=== PATIENT | male | born 1965 | race Caucasian/White ===

== ENCOUNTER 2019-06-12 17:05 | Emergency (ER) | payer BC, SELFPAY ==
--- NOTE | ~2019-06-12 | XR_ITS ---
EXAMINATION: XR chest 2V DATE: 06/12/2019 17:29 INDICATION: Left-sided chest pain TECHNIQUE: PA and lateral views of the chest are obtained. COMPARISON: None available FINDINGS: The lungs are hyperinflated but free of acute opacities. There is no pleural effusion or pn eumothorax. The cardiomediastinal silhouette is normal. There is mild thoracic spondylosis. IMPRESSION: 1. Hyperinflation without acute cardiopulmonary abnormality. Reviewed, dictated and finalized at location A. COATING MACHINE OPERATOR
--- NOTE | 2019-06-12 17:06 | ECG_ITS ---
Measurements Intervals [place] Rate: 85 P: 81 RI: 142 QRS: 83 QRSD: 89 T: 48 QT: 327 QTc: 389 Interpretive Statements SINUS RHYTHM POSSIBLE LEFT ATRIAL ENLARGEMENT POSSIBLE LEFT VENTRICULAR HYPERTROPHY BASELINE ARTIFACT- V3 BORDERLINE ECG Electronically Signed On 06-12-2019 19:48:42 AUTOMATION CONSULTANT by Eleazar Small D.O.
[2019-06-12 17:13] VITALS: BP 127/90; PULSE 90; RESP 17; TEMP 37.5; O2SAT 98
[2019-06-12 17:23] LABS: Basophils Percent Auto 0.9 % (0.2-1.2); Eosinophils Absolute Auto 0.1 K/mm3 (0-0.3); Eosinophils Percent Auto 2.8 % (0-4.4); Hematocrit 43.8 % (42.0-52.0); Hemoglobin 14.4 g/dL (14.0-18.0); Immature Granulocyte Absolute 0.02 K/mm3 (0.00-0.031); Immature Granulocyte Percent A 0.4 % (0-0.5); Lymphocytes Absolute Auto 0.86 K/mm3 (0.9-3.2); Lymphocytes Percent Auto 18.8 % (18.3-44.2); Mean Corpuscular HGB Conc 32.9 g/dl (32-36); Mean Corpuscular Hemoglobin 31.1 pg (26-34); Mean Corpuscular Volume 94.6 fl (80-100); Mean Platelet Volume 10.5 fl (7.4-10.4); Monocytes Absolute Auto 0.6 K/mm3 (0.1-0.6); Monocytes Percent Auto 12.2 % (2.6-8.5); Neutrophils Percent Auto 64.9 % (45.5-73.1); Platelet Count Result 220 k/mm3 (150-375); Red Blood Count 4.63 M/mm3 (4.6-6.20); Red Cell Distribution Width 12.4 % (11.5-14.5); White Blood Count 4.6 K/mm3 (4.5-10.0)
[2019-06-12 17:33] LABS: Prothrombin Time 13.3 Seconds (11.1-14.7)
[2019-06-12 17:34] LABS: Partial Thromboplastin Time 29.6 SECONDS (22.3-36.8)
[2019-06-12 17:35] LABS: Blood Urea Nitrogen 16 mg/dL (9-20); Calcium 9.5 mg/dL (8.4-10.2); Carbon Dioxide 29 mmol/L (22-30); Chloride 100 mmol/L (98-107); Estimated Glomerular Filt Rate > 60; Glucose 104 mg/dL (75-110); Potassium 4.1 mmol/L (3.4-5.0); Sodium 142 mmol/L (137-145)
[2019-06-12 17:46] LABS: Troponin I < 0.012 ng/mL (0.000-0.034)
[2019-06-12 20:38] VITALS: BP 136/96; PULSE 71; PULSE 76; RESP 10; TEMP 36.7; O2SAT 100
--- NOTE | 2019-06-12 20:43 | ED.CHESTPAIN ---
HPI - Chest Pain General Chief Complaint: Chest Pain Stated Complaint: I think I had a heart attck yesterday Time Seen by Provider: 06/12/19 20:32 Source: patient and RN notes reviewed Mode of arrival: ambulatory Limitations: no limitations History of Present Illness HPI narrative: Pt is a 54 y/o male who presents to the ED with c/o lt sided chest pain starting yesterday. He notes that he has been more anxious recently, stating that he was quite nervous to ride a horse yesterday. Pt notes that he developed tightness in the lt side of his chest while he was riding the horse yesterday. He states that he hasn't felt right ever since, and notes that he experienced another episode of tightness in the lt side of his chest while exercising earlier today. Pt also reports feeling lightheaded shortly after working out. He denies any back pain, lt arm pain, jaw pain, nausea, or diaphoresis accompanying his chest tightness. Pt states that he hasn't taken any pain medications for his symptoms. MD complaint: chest pain Onset (ago): day(s) (1) Timing of current episode: episodic Onset: during exertion (while riding a horse) Pain location: left chest Pain radiation: none Quality: tightness Exacerbating factors: exertion Associated symptoms: other (lightheadedness; anxiety) Treatment prior to arrival: none Related Data Home Medications Medication Instructions Recorded Confirmed No Home Medications 06/12/19 06/12/19 Allergies Allergy/AdvReac Type Severity Reaction Status Date / Time No Known Allergies Allergy Verified 06/12/19 20:39 Review of Systems Review of Systems: Narrative: CONSTITUTIONAL: Denies fever, chills, or sweats. CARDIOVASCULAR: Reports lt sided chest pain. Denies palpitations or edema. RESPIRATORY: Denies cough or dyspnea. GASTROINTESTINAL: Denies abdominal pain, nausea, vomiting, or diarrhea. MUSCULOSKELETAL: Denies back pain, jaw pain, lt arm pain, joint pain, or myalgia. NEUROLOGIC: Denies headache, numbness, or weakness. Reports lightheadedness. PSYCH: Reports anxiety. All systems reviewed & are unremarkable except as noted in HPI and below PMFSH Past Medical History Medical History Arm fracture, left Inguinal hernia Surgical History Surgical History Hx of inguinal hernia repair Hx of tonsillectomy Family History Family History (Updated 01/09/17 @ 14:03 by DOCTOR UNKNOWN) Mother Hypertension Father Family history of diabetes mellitus in first degree relative Other Diabetes mellitus Family history of allergic disorder Social History Social History Smoking status: Never smoker Alcohol intake: current Gender identity (if verbalized by the patient): Male Comments PCP is Dr. Pleitez. Exam Narrative: Exam Narrative: GENERAL: Anxious appearing, well-nourished, and in no acute distress. HEAD: Normocephalic, atraumatic. EYES: PERRLA and EOMI. ENT: Nares clear, no rhinorrhea or epistaxis. Mucous membranes moist. NECK: Supple. CHEST: Clear to auscultation. No respiratory distress. No chest wall tenderness. HEART: Regular rate and rhythm. No murmur heard. Normal peripheral pulses. ABDOMEN: Soft, nontender, nondistended, normal active bowel sounds. EXTREMITIES: Normal range of motion. No edema. SKIN: Warm, dry, no rash. NEURO: No focal deficits. Alert and oriented. Course Vital Signs Vital signs: Vital Signs Temperature 37.5 C 06/12/19 17:13 Pulse Rate 90 06/12/19 17:13 Respiratory Rate 17 06/12/19 17:13 Blood Pressure 127/90 06/12/19 17:13 Pulse Oximetry 98 06/12/19 17:13 Temperature 36.7 C 06/12/19 20:38 Pulse Rate 71 06/12/19 20:38 Respiratory Rate 10 L 06/12/19 20:38 Blood Pressure 136/96 H 06/12/19 20:38 Pulse Oximetry 100 06/12/19 20:38 MDM - Chest Pain MDM Narrative Medical decision making narr
[2019-06-12 20:52] LABS: Troponin I < 0.012 ng/mL (0.000-0.034)
[2019-06-12 21:07] VITALS: BP 137/102; PULSE 83; RESP 14; O2SAT 99
== END 2019-06-12 21:12 | disposition home or self-care (01) ==
LOC: ANHED 21:00
PROVIDERS: Emergency Provider Emergency Medicine; PCP Family Medicine
DX: R07.89 Other chest pain (principal); R94.31 Abnormal electrocardiogram [ECG] [EKG]
CPT/HCPCS: 36415; 71046; 80048; 84484; 85025; 85610; 85730; 93005; 99284

== ENCOUNTER → 2020-03-29 11:44 | Outpatient (CLI) | payer BC, SELFPAY ==
--- NOTE | ~2020-03-29 | XR_ITS ---
EXAMINATION: XR tibia fibula LT 2V EXAM DATE: 03/29/2020 12:40 INDICATION: No known recent injury provided at this time. Pain of the left leg. Painful quarter size d lump of lower medial LT tibfib. Painful dime sized lump of lower medial RT tibfib x 2 weeks. TECHNIQUE: Left tibia/fibula frontal and lateral projections obtained and reviewed. There is no prio r study for comparison. FINDINGS: Left tibial and fibular shafts unremarkable. There are no acute fractures or dislocations identified. There is no subcutaneous gas. The soft tissue is unremarkable. There are no radiopaqu e foreign bodies. No periosteal reaction or band of sclerosis to suggest subacute stress fracture. IMPRESSION: 1. Unremarkable XR tibia fibula LT 2V exam. Reviewed, dictated and finalized at location A. [employer] REGULATORY AGENCY
--- NOTE | ~2020-03-29 | XR_ITS ---
EXAMINATION: XR tibia fibula RT 2V EXAM DATE: 03/29/2020 12:39 INDICATION: No known recent injury provided at this time. Pain of the right leg. TECHNIQUE: Right tibia/fibula frontal and lateral projections obtained and reviewed. Comparison is ma dominique to prior examination from 02/23/2017. FINDINGS: Right tibial and fibular shafts unremarkable. No periosteal reaction or band of sclerosis to suggest subacute stress fracture. There are no acute fractures or dislocations identified. There is no subcutaneous gas. The soft tissue is unremarkable. There are no radiopaque foreign bodies. IMPRESSION: 1. Unremarkable XR tibia fibula RT 2V exam. Reviewed, dictated and finalized at location A. RAMMING DEVELOPMENT PROJECT MANAGER
== END ==
PROVIDERS: PCP Family Medicine; Visit Provider Nurse Practitioner
DX: M79.606 Pain in leg, unspecified (principal)
CPT/HCPCS: 73590

== ENCOUNTER 2020-08-09 11:10 | Emergency (ER) | payer BC, SELFPAY ==
[2020-08-09] VITALS (10 sets, daily range): BP systolic 123–143; BP diastolic 78–92; PULSE 68–108; RESP 10–21; TEMP 36.3; O2SAT 100
--- NOTE | ~2020-08-09 | XR_ITS ---
EXAMINATION: XR wrist LT 2V DATE: 08/09/2020 13:43 INDICATION: Distal left radius fracture status post reduction. TECHNIQUE: 2 views of left wrist were obtained. COMPARISON: Left wrist radiographs at 11:46 AM FINDINGS: There is a comminuted fracture of distal radius with involvement of the distal articular alex rface and distal radioulnar joint. The main distal fracture fragment demonstrates impaction and dorsa l angulation. There is 14 degrees dorsal tilt of the distal articular surface. There is an avulsion f racture of the ulnar styloid. There is mild osteoarthritis of first carpometacarpal joint. IMPRESSION: 1. Comminuted fracture of distal radius with improvement in alignment. 2. Avulsion fracture of the ulnar styloid. Reviewed, dictated and finalized at location A.
--- NOTE | ~2020-08-09 | XR_ITS ---
EXAMINATION: XR wrist LT min 3V DATE: 08/09/2020 11:48 INDICATION: Left wrist pain, initial encounter TECHNIQUE: Three views of the left wrist are obtained. COMPARISON: None available FINDINGS: There is an acute, traumatic, closed, comminuted intra-articular fracture of the distal rad ius. There are 30 degrees of dorsal angulation at the fracture site. The carpal bones are dorsally di splaced with the distal fracture fragment. There is an ulnar styloid avulsion fracture. Soft tissue s welling surrounds the fractures. No additional acute osseous abnormality is identified. IMPRESSION: 1. Comminuted intra-articular fracture of the distal radius with dorsal angulation. 2. Ulnar styloid fracture. Reviewed, dictated and finalized at location B. IMPRESSION: 1. Comminuted intra-articular fracture of the distal radius with dorsal angulat ion. 2. Ulnar styloid fracture.
--- NOTE | 2020-08-09 11:41 | ED.UPPEXIN ---
HPI - Extremity Injury (Upper) General Chief Complaint: Extremity Injury, Upper Stated Complaint: Broken Wrist Time Seen by Provider: 08/09/20 11:22 Source: patient Mode of arrival: ambulatory Limitations: no limitations History of Present Illness HPI narrative: This is a 55 year male that presents to the ER for left wrist injury sustained just prior to arrival. Reports he was getting in the shower and slipped and fell. Reports catching himself with his left wrist. Reports pain, swelling and obvious deformity to the area. Reports decreased range of motion in the wrist. Denies hitting his head, loss of consciousness, prodromal symptoms, other injuries, or numbness. Related Data Allergies Allergy/AdvReac Type Severity Reaction Status Date / Time No Known Allergies Allergy Verified 08/09/20 11:21 Review of Systems Review of Systems: Narrative: CONSTITUTIONAL: Denies fever MUSCULOSKELETAL: Reports joint pain, and myalgia. NEUROLOGIC: Denies numbness All systems reviewed & are unremarkable except as noted in HPI and below PMFSH Past Medical History Medical History (Updated 08/09/20 @ 15:39 by Linnette Heath PA-C) Arm fracture, left Inguinal hernia Onychomycosis 1999 Radial fracture right - 1970 Rupture of extensor tendon of finger right - 1995 Surgical History Surgical History Hx of inguinal hernia repair left and right - 08/2014 left 09/2014 left 07/02/2018 Hx of tonsillectomy Family History Family History Mother Hypertension Father Family history of diabetes mellitus in first degree relative Other Diabetes mellitus Family history of allergic disorder Social History Social History Smoking status: Never smoker Second hand tobacco smoke exposure: No Alcohol intake: current Substance use: never Substance use type: does not use Gender identity (if verbalized by the patient): Male Exam Narrative: Exam Narrative: GENERAL: Well-appearing, well-nourished, and in no acute distress. HEAD: Normocephalic, atraumatic. EYES: EOMI. EXTREMITIES: Normal range of motion, except decreased range of motion in the left wrist. Obvious deformity to the left wrist. Normal radial pulses. Normal sensation SKIN: Warm, dry, no rash. NEURO: No focal deficits. Alert and oriented x3. PSYCH: Normal mood and affect Course Consultations Consultation #1: Spoke with Dr. Hearn about patient and work-up will follow-up in clinic. Date: 08/09/20 Time: 15:38 Vital Signs Vital signs: Vital Signs Temperature 97.4 F L 08/09/20 11:14 Pulse Rate 68 08/09/20 11:14 Respiratory Rate 18 08/09/20 11:14 Blood Pressure 123/80 08/09/20 11:14 Pulse Oximetry 100 08/09/20 11:14 Temperature 97.4 F L 08/09/20 11:14 Pulse Rate 108 H 08/09/20 14:59 Respiratory Rate 17 08/09/20 14:59 Blood Pressure 135/89 08/09/20 14:59 Pulse Oximetry 100 08/09/20 14:59 MDM - Extremity Injury (Upper) MDM Narrative Medical decision making narrative: Patient presents to the emergency department for left wrist pain after a fall today. No other injuries. He is neurovascularly intact. Left wrist x-ray shows a comminuted intra-articular fracture of the distal radius with dorsal angulation. Postreduction x-ray still shows comminuted fracture of the distal radius with improvement in alignment. Also shows avulsion fracture of the ulnar styloid. Patient placed in splint. Spoke with Dr. Hearn about patient and work-up will follow-up in clinic. Patient is stable and felt appropriate for further outpatient evaluation. He was given warnings to return to the ER Imaging Data Radiologist's impression: ITS Impressions Wrist X-Ray 08/09/20 11:49 IMPRESSION: 1. Comminuted intra-articular fracture of the distal radius with dorsal angulation. 2. Ul
[2020-08-09] MEDS: ONDANSETRON INJ 4 MG/2 ML VIAL IV PUSH (12:08)
[2020-08-09] MEDS: MORPHINE SULFATE (*CRX) 4 MG/ML INJ IV PUSH (12:08)
[2020-08-09] MEDS: PROPOFOL IV EMULSION 200 MG/20 ML VIAL 60 MG IV PUSH (13:35)
[2020-08-09] MEDS: SODIUM CHLORIDE 0.9% IV 1,000 ML 999 ML (13:36)
[2020-08-09] MEDS: HYDROcodone/acetaminophen (*CRX) 5-325 MG TABLET 1 TAB PO (14:59)
--- NOTE | 2020-08-09 15:00 | PC.NURSE ---
o2 d/c,medicated for pain
== END 2020-08-09 16:16 | disposition home or self-care (01) ==
PROVIDERS: Emergency Provider Emergency Medicine; PCP Family Medicine
DX: S52.572A Other intraarticular fracture of lower end of left radius, initial encounter for closed fracture (principal); S52.612A Displaced fracture of left ulna styloid process, initial encounter for closed fracture; W18.2XXA Fall in (into) shower or empty bathtub, initial encounter
CPT/HCPCS: 25605; 73100; 73110; 96374; 96375; 99285; A4565; A9270; J2270; J2405; J2704; J7030

== ENCOUNTER 2020-08-11 02:26 | Day surgery (SDC) | payer BC, SELFPAY ==
[2020-08-11] VITALS (8 sets, daily range): BP systolic 103–171; BP diastolic 66–98; PULSE 84–111; RESP 10–20; TEMP 36.4–37.4; O2SAT 97–100; BMI 19.6
--- NOTE | ~2020-08-11 | XR_ITS ---
XR surgery orthopedic DATE: 08/11/2020 18:06 INDICATION: ORIF comminuted fracture distal radius TECHNIQUE: 2 spot C-arm views of the wrist 255.4 seconds 15.66 mGy COMPARISON: 08/10/2020 left wrist FINDINGS: A volar plate secured by anteroposteriorly directed screws providing near-anatomic position and alignment at the comminuted fracture of the distal radius. Fracture of the ulnar process. IMPRESSION: ORIF distal radial fracture Reviewed, dictated and finalized at Location A. Reviewed, dictated and finalized at location A. IMPRESSION: ORIF distal radial fracture
--- NOTE | 2020-08-11 07:33 | WPDHPUPDATE1 ---
History and Physical Update Update Date/Time: 08/11/20 07:33 History and Physical has been reviewed, including an updated exam of the patient. There are NO changes in the patient's condition. Risks, benefits, and alternatives have been discussed and questions answered. Patient agrees to proceed with procedure.
--- NOTE | 2020-08-11 13:30 | SUR.PREOP ---
Patient updated that there is probably a 30 minute delay in surgery start time
[2020-08-11] MEDS: ACETAMINOPHEN 500 MG TABLET 1000 MG PO (13:45)
[2020-08-11] MEDS: LACTATED RINGERS 1,000 ML 30 ML IV CONT ×2 (13:45→18:35)
[2020-08-11] MEDS: CELECOXIB 200 MG CAPSULE PO (13:45)
--- NOTE | 2020-08-11 14:00 | SUR.PREOP ---
Per Dr. Hearn cast is to remain in place, no shave and scrub in pre-op area.
--- NOTE | 2020-08-11 14:15 | WPDANESEPPF ---
Anes - Initial Pre Proc Eval Procedure: Operation Date: 08/11/20 15:00 Proposed Procedures p Open Reduction Internal Fixation Left Wrist Fracture - Rogelio Hearn MD Date/Time: 08/11/20 14:15 Surgeon: Rogelio Hearn MD Pre Op Diagnosis: left wrist fx Patient Data Age: 55 Gender: M Height: 5 ft 9 in Weight: 58.35 kg Last Vital Signs Temp 37.4 C 08/11/20 14:00 Pulse 84 08/11/20 14:00 Resp 16 08/11/20 14:00 BP 137/92 H 08/11/20 14:00 Pulse Ox 100 08/11/20 14:00 Allergies Allergy/AdvReac Type Severity Reaction Status Date / Time No Known Allergies Allergy Verified 08/11/20 13:53 Home Medications Medication Instructions Recorded Confirmed Type hydrocodone-acetaminophen 1 tablet PO Q6H PRN #14 tablet 08/09/20 08/11/20 Rx Patient hx anesthesia problems: none Family hx anesthesia problems: none PMFSH Past Medical History Medical History Anxiety Arm fracture, left Inguinal hernia Onychomycosis 1999 Radial fracture right - 1970 Rupture of extensor tendon of finger right - 1995 Wears glasses Surgical History Surgical History Hx of inguinal hernia repair left and right - 08/2014 left 09/2014 left 07/02/2018 Hx of tonsillectomy Family History Family History Mother Hypertension Father Family history of diabetes mellitus in first degree relative Diabetes mellitus Other Family history of allergic disorder Social History Social History Smoking status: Never smoker Second hand tobacco smoke exposure: No Alcohol intake: current Alcohol use details: 1/MONTH Substance use: never Substance use type: does not use Living arrangements: alone Gender identity (if verbalized by the patient): Male Spiritual care concerns: No Anes - Eval Final PreProcedure Day of Procedure 08/11/20 14:15 Patient weight: normal Heart: regular rate and rhythm Lungs: clear to auscultation Airway: Mallampati scale class II Neurological: alert and oriented Last oral intake: >/= 8 hours ASA classification: I Emergent: no Anesthetic plan: proceed Anesthesia type and monitoring: general LMA and standard monitoring Informed Consent: The patient's anesthetic plan and its attendant risks and benefits were discussed with the patient/family/POA. Questions were solicited and answers provided to the satisfaction of the patient/family/POA.
[2020-08-11] MEDS: ceFAZolin 2 GM/D5W 50 ML 2 GM/50 ML BAG IVPB (16:30)
[2020-08-11] MEDS: BUPIVACAINE HCL 0.5% PF 30 ML VIAL INFILTRATE (17:03)
[2020-08-11] MEDS: KETOROLAC 30 MG/ML VIAL (*BKC) IV PUSH (18:17)
--- NOTE | 2020-08-11 18:36 | P.OP_ITS ---
Procedure Note - Detailed Date of procedure: 08/11/20 Pre-op diagnosis: left wrist fx Post-op diagnosis: same Procedure performed: ORIF LEFT DISTAL RADIUS FRACTURE Description of procedure: THE PATIENT WAS TAKEN TO THE OR AND PLACED UNDER GENE RAL ANESTHESIA. THE LEFT UPPER EXTREMITY WAS PREPPED AND DRAPED FROM THE FINGERS TO THE ELBOW. AN INCISION WAS MADE OVER THE VOLAR WRIST IN A STANDARD HENRYS APPROACH OVER THE SKIN. DISSECTION CONTINUED UNTIL THE RADIAL ARTERY AND VEIN WERE IDENTIFIED AND RETRACTED. THE FCR TENDON WAS EXPOSED AND RETRACTED. THE FLEXOR POLLICIS TENDON WAS IDENTIFIED AND RETRACTED. THE PRONATOR QUADRATUS MUSCLE WAS IDENTIFIED AND WAS INCISED AT THE INSERTION SITE. THE FRACTURE WAS EXPOSED. A BIOMET DISTAL RADIUS PLATE WAS POSITIONED BRIDGING THE FRACTURE SITE. THE POSITION WAS CHECKED ON XRAY. DISTAL AND PROXIMAL SCREWS WERE PLACED WITH EXCELLENT FIXATION TO THE BONE. XRAYS WERE CHECKED AGAIN ASSURING EXCELLENT POSITION OF THE PLATE AND SCREWS AND A WELL REDUCED FRACTURE. THE TOURNEQUET WAS DEFLATED AND THE BLEEDERS WERE CAUTERIZED. THE RADIAL ARTERY WAS PULSATING WELL. THE WOUND WAS WASHED. THE DEEP LAYERS WERE REPAIRED WITH 3-0 VICRYL. THE SUBCUTANEOUS LAYER WAS APPROXIMATED WELL WITH 3-0 VICRYL AND THE SKIN WAS APPROXIMATED WITH 4-0 MONOCRYL AND DERMABOND. STERILE DRESSING WAS APPLIED AND A SUGAR TONG FOREARM SPLINT WAS APPLIED. THE PATIENT WAS EXTUBATED AND TRANSFERRED TO THE RECOVERY ROOM [facility] Surgeon: Rogelio Hearn MD Estimated blood loss (mL): 20 Complications: No immediate complications Condition: stable Disposition: PACU
== END 2020-08-11 20:33 | disposition home or self-care (01) ==
PROVIDERS: PCP Family Medicine; Visit Provider Orthopaedic Surgery
PROC: (CPT 25575; principal; 2020-08-11 15:00)
DX: S52.572A Other intraarticular fracture of lower end of left radius, initial encounter for closed fracture (principal); W18.2XXA Fall in (into) shower or empty bathtub, initial encounter
CPT/HCPCS: 25608; A9270; C1713; J0690; J1885; J2250; J2405; J2704; J3010; J7120

== ENCOUNTER 2022-03-15 11:21 | Outpatient (CLI) | payer BC, SELFPAY ==
[2022-03-15 19:46] LABS: Basophils Absolute Auto 0.1 K/mm3 (0.0-0.1); Basophils Percent Auto 1.5 % (0.2-1.2); Eosinophils Absolute Auto 0.3 K/mm3 (0-0.3); Eosinophils Percent Auto 6.3 % (0-4.4); Hematocrit 46.9 % (42.0-52.0); Hemoglobin 15.3 g/dL (14.0-18.0); Immature Granulocyte Absolute 0.02 K/mm3 (0.00-0.031); Immature Granulocyte Percent A 0.4 % (0-0.5); Lymphocytes Absolute Auto 0.97 K/mm3 (0.9-3.2); Lymphocytes Percent Auto 17.9 % (18.3-44.2); Mean Corpuscular HGB Conc 32.6 g/dl (32-36); Mean Corpuscular Hemoglobin 31.8 pg (26-34); Mean Corpuscular Volume 97.5 fl (80-100); Mean Platelet Volume 10.5 fl (7.4-10.4); Monocytes Absolute Auto 0.6 K/mm3 (0.1-0.6); Monocytes Percent Auto 10.1 % (2.6-8.5); Neutrophils Absolute Auto 3.5 K/mm3 (1.3-6.7); Neutrophils Percent Auto 63.8 % (45.5-73.1); Nucleated Red Blood Cells Perc 0.4 % (0.0-0.2); Platelet Count Result 250 k/mm3 (150-375); Red Blood Count 4.81 M/mm3 (4.6-6.20); Red Cell Distribution Width 12.4 % (11.5-14.5); White Blood Count 5.4 K/mm3 (4.5-10.0)
[2022-03-15 20:20] LABS: Vitamin D 25 Hydroxy 38.7 ng/mL
[2022-03-15 20:34] LABS: Thyroid Stimulating Hormone Reflex 0.688 uIU/mL (0.465-4.68)
[2022-03-15 21:46] LABS: Alanine Aminotransferase 34 U/L (6-50); Alkaline Phosphatase 73 U/L (38-126); Anion Gap 14 mmol/L (8-16); Aspartate Amino Transferase 28 U/L (17-59); Bilirubin,Total 0.6 mg/dL (0.2-1.3); Blood Urea Nitrogen 13 mg/dL (9-20); Carbon Dioxide 21 mmol/L (22-30); Chloride 108 mmol/L (98-107); Cholesterol 213 mg/dL (0-200); Estimated Glomerular Filt Rate > 60; Glucose 103 mg/dL (65-110); HDL Direct 71 mg/dL; Potassium 4.5 mmol/L (3.4-5.0); Sodium 143 mmol/L (137-145); Triglycerides 117 mg/dL (<150)
[2022-03-15 21:57] LABS: LDL Cholesterol Direct 100 mg/dL
== END 2022-03-15 11:22 | disposition home or self-care (01) ==
LOC: ANHGOSHLAB 11:24
PROVIDERS: PCP Family Medicine; Visit Provider Family Medicine
DX: Z00.00 Encounter for general adult medical examination without abnormal findings (principal); D72.819 Decreased white blood cell count, unspecified; Z13.29 Encounter for screening for other suspected endocrine disorder; E53.8 Deficiency of other specified B group vitamins; Z13.220 Encounter for screening for lipoid disorders; Z12.5 Encounter for screening for malignant neoplasm of prostate; Z79.899 Other long term (current) drug therapy; E55.9 Vitamin D deficiency, unspecified
CPT/HCPCS: 36415; 80053; 80061; 82306; 82607; 84153; 84443; 85025; G0103

== ENCOUNTER 2022-05-04 03:18 | Day surgery (SDC) | payer BC, SELFPAY ==
[2022-04-18 13:43] VITALS: BMI 22.2
[2022-05-04 07:06] VITALS: BP 121/80; PULSE 106; RESP 18; TEMP 36.8; O2SAT 98
[2022-05-04] MEDS: LACTATED RINGERS 1,000 ML 150 ML IV CONT (07:09)
--- NOTE | 2022-05-04 07:24 | PM.HPGS ---
History of Present Illness History of Present Illness Consent: Risks, benefits, and alternatives have been discussed and questions answered. Patient agrees to proceed with procedure. Chief complaint: neoplasm screening Narrative: Chao Ayala is a 57 year old male Presents for screening colonoscopy. Patient's current weight appetite and bowel movements are normal. Patient denies abdominal pain. He has had no bleeding. Family history is noncontributory. Previous colonoscopy 2007 was unremarkable. Review of Systems Review of Systems: Review of systems noncontributory. [facility] Past Medical History Medical History Anxiety Distal radius fracture, left Environmental allergies Inguinal hernia Onychomycosis 1999 Radial fracture right - 1970 Rupture of extensor tendon of finger right - 1995 Surgical History Surgical History History of surgery on left wrist 07/2020 - ORIF of distal radius fracture Hx of inguinal hernia repair left and right - 08/2014 left 10/2014 Hx of tonsillectomy Family History Family History Mother Hypertension Father Family history of diabetes mellitus in first degree relative Diabetes mellitus Other Family history of allergic disorder Social History Social History Smoking status: Never smoker Second hand tobacco smoke exposure: No Alcohol intake: current Alcohol use details: 1/MONTH Substance use: never Substance use type: does not use Lack of Transportation: No Lack of Food: Never True Current Housing: I Have Housing Concerned About Future Housing: No Difficulty Paying Gas/Electric Bills: No Difficulty Paying for Meds: No Currently Unemployed: No Education: Bachelor's Degree Difficulty w/ Childcare or Family Care: No Living arrangements: alone Gender identity (if verbalized by the patient): Male Spiritual care concerns: No Meds Home Medications and Allergies Home Medications Medication Instructions Recorded Confirmed Type fluticasone propionate 50 2 spray intranasal DAILY #16 grams 03/14/22 05/04/22 Rx mcg/actuation nasal spray,suspension (Flonase Allergy Relief) loratadine 10 mg tablet (Claritin) 10 mg PO DAILY 03/14/22 05/04/22 History Allergies Allergy/AdvReac Type Severity Reaction Status Date / Time No Known Allergies Allergy Verified 05/04/22 07:04 Vital Signs Vital Signs - 24 hr 05/04/22 07:06 Temperature 98.3 F Pulse Rate 106 H Respiratory Rate 18 Blood Pressure 121/80 Pulse Oximetry 98 Oxygen Delivery Room Air Exam Narrative: Physical exam reveals patient be alert. Vital signs stable. HEENT exam is unremarkable. Patient is anicteric. Lungs are clear to auscultation and percussion. Heart is without murmur or extra sounds. Abdomen bowel sounds are present soft nontender with no organomegaly. Digital external rectal exam is normal. Assessment and Plan Assessment and plan (1) Encounter for screening colonoscopy: Code(s): Z12.11 - Encounter for screening for malignant neoplasm of colon Status: Acute Assessment and Plan: Patient presents today for screening colonoscopy. He appears to be at average risk for colon polyps. Further recommendations may be given after endoscopy.
--- NOTE | 2022-05-04 08:00 | WPDANESEPPF ---
Anes - Initial Pre Proc Eval Procedure: Operation Date: 05/04/22 08:30 Proposed Procedures p Screening Colonoscopy - Jarod Easton MD Date/Time: 05/04/22 08:00 Surgeon: Jarod Easton MD Pre Op Diagnosis: neoplasm screening Patient Data Age: 57 Gender: M Height: 1.75 m Weight: 63.3 kg Last Vital Signs Temp 98.3 F 05/04/22 07:06 Pulse 106 H 05/04/22 07:06 Resp 18 05/04/22 07:06 BP 121/80 05/04/22 07:06 Pulse Ox 98 05/04/22 07:06 O2 Del Method Room Air 05/04/22 07:06 Allergies Allergy/AdvReac Type Severity Reaction Status Date / Time No Known Allergies Allergy Verified 05/04/22 07:04 Home Medications Medication Instructions Recorded Confirmed Type fluticasone propionate 50 2 spray intranasal DAILY #16 grams 03/14/22 05/04/22 Rx mcg/actuation nasal spray,suspension (Flonase Allergy Relief) loratadine 10 mg tablet (Claritin) 10 mg PO DAILY 03/14/22 05/04/22 History Patient hx anesthesia problems: none Family hx anesthesia problems: none Results Review: All pre-operative results and documents have been reviewed as part of the pre-operative evaluation. [facility] Past Medical History Medical History Anxiety Distal radius fracture, left Environmental allergies Inguinal hernia Onychomycosis 1999 Radial fracture right - 1970 Rupture of extensor tendon of finger right - 1995 Surgical History Surgical History History of surgery on left wrist 07/2020 - ORIF of distal radius fracture Hx of inguinal hernia repair left and right - 08/2014 left 10/2014 Hx of tonsillectomy Family History Family History Mother Hypertension Father Family history of diabetes mellitus in first degree relative Diabetes mellitus Other Family history of allergic disorder Social History Social History Smoking status: Never smoker Second hand tobacco smoke exposure: No Alcohol intake: current Alcohol use details: 1/MONTH Substance use: never Substance use type: does not use Lack of Transportation: No Lack of Food: Never True Current Housing: I Have Housing Concerned About Future Housing: No Difficulty Paying Gas/Electric Bills: No Difficulty Paying for Meds: No Currently Unemployed: No Education: Bachelor's Degree Difficulty w/ Childcare or Family Care: No Living arrangements: alone Gender identity (if verbalized by the patient): Male Spiritual care concerns: No Anes - Eval Final PreProcedure Day of Procedure 05/04/22 08:00 Patient weight: normal Heart: regular rate and rhythm Lungs: clear to auscultation Airway: Mallampati scale class II Neurological: alert and oriented Last oral intake: >/= 8 hours ASA classification: II Emergent: no Anesthetic plan: proceed Anesthesia type and monitoring: general GIVS and standard monitoring Results Review: All pre-operative results and documents have been reviewed as part of the pre-operative evaluation. Informed Consent: The patient's anesthetic plan and its attendant risks and benefits were discussed with the patient/family/POA. Questions were solicited and answers provided to the satisfaction of the patient/family/POA.
[2022-05-04] MEDS: SIMETHICONE ORAL SUSPENSION 20 MG/0.3 ML 30 ML BOTTLE 0.6 ML IRRIGATION (08:36)
[2022-05-04 08:44] VITALS: BP 127/89; PULSE 100; RESP 20; O2SAT 99
[2022-05-04 08:54] VITALS: BP 125/91; PULSE 98; RESP 19; O2SAT 100
[2022-05-04 09:04] VITALS: BP 136/97; PULSE 90; RESP 14; O2SAT 100
== END 2022-05-04 09:16 | disposition home or self-care (01) ==
PROVIDERS: PCP Family Medicine; Visit Provider Internal Medicine Gastroenterology
PROC: 0DJD8ZZ Inspection of Lower Intestinal Tract, Via Natural or Artificial Opening Endoscopic (ICD-10-PCS; CPT 45378; principal; 2022-05-04 08:30)
DX: Z12.11 Encounter for screening for malignant neoplasm of colon (principal)
CPT/HCPCS: 45378; J2704; J7120

== ENCOUNTER 2023-04-09 09:37 | Outpatient (CLI) | payer BC, SELFPAY ==
[2023-04-09 18:44] LABS: Basophils Absolute Auto 0.1 K/mm3 (0.0-0.1); Basophils Percent Auto 1.2 % (0.2-1.2); Eosinophils Absolute Auto 0.3 K/mm3 (0-0.3); Eosinophils Percent Auto 6.9 % (0-4.4); Hematocrit 44.2 % (42.0-52.0); Hemoglobin 14.6 g/dL (14.0-18.0); Immature Granulocyte Absolute 0.01 K/mm3 (0.00-0.031); Immature Granulocyte Percent A 0.2 % (0-0.5); Lymphocytes Absolute Auto 0.91 K/mm3 (0.9-3.2); Mean Corpuscular Volume 93.8 fl (80-100); Mean Platelet Volume 10.5 fl (7.4-10.4); Monocytes Absolute Auto 0.4 K/mm3 (0.1-0.6); Monocytes Percent Auto 9.9 % (2.6-8.5); Neutrophils Absolute Auto 2.6 K/mm3 (1.3-6.7); Neutrophils Percent Auto 60.8 % (45.5-73.1); Platelet Count Result 267 k/mm3 (150-375); Red Blood Count 4.71 M/mm3 (4.6-6.20); Red Cell Distribution Width 12.3 % (11.5-14.5); White Blood Count 4.3 K/mm3 (4.5-10.0)
[2023-04-09 19:25] LABS: Alanine Aminotransferase 18 U/L (6-50); Albumin Level 4.4 g/dL (3.5-5.1); Alkaline Phosphatase 75 U/L (38-126); Anion Gap 6 mmol/L (8-16); Aspartate Amino Transferase 25 U/L (17-59); Bilirubin,Total 0.6 mg/dL (0.2-1.3); Blood Urea Nitrogen 14 mg/dL (9-20); Calcium 9.4 mg/dL (8.4-10.2); Carbon Dioxide 31 mmol/L (22-30); Chloride 105 mmol/L (98-107); Cholesterol 179 mg/dL (0-200); Estimated Glomerular Filt Rate > 60; Glucose 108 mg/dL (65-110); HDL Direct 60 mg/dL; Potassium 4.1 mmol/L (3.4-5.0); Sodium 142 mmol/L (137-145); Triglycerides 64 mg/dL (<150)
[2023-04-09 19:35] LABS: Vitamin D 25 Hydroxy 31.3 ng/mL
[2023-04-09 19:37] LABS: LDL Cholesterol Direct 89 mg/dL
[2023-04-09 19:48] LABS: Thyroid Stimulating Hormone Reflex 0.625 uIU/mL (0.465-4.68)
[2023-04-09 20:00] LABS: Prostate Specific Antigen 1.1 ng/mL (< OR = 4.0)
[2023-04-09 21:11] LABS: Hemoglobin A1C 5.7 % (<5.7)
== END 2023-04-09 09:38 | disposition home or self-care (01) ==
LOC: ANHGOSHLAB 09:38
PROVIDERS: PCP Family Medicine; Visit Provider Family Medicine
DX: E53.8 Deficiency of other specified B group vitamins (principal); Z00.00 Encounter for general adult medical examination without abnormal findings; D72.819 Decreased white blood cell count, unspecified; E78.5 Hyperlipidemia, unspecified; G47.00 Insomnia, unspecified; Z12.5 Encounter for screening for malignant neoplasm of prostate; R73.9 Hyperglycemia, unspecified; E55.9 Vitamin D deficiency, unspecified
CPT/HCPCS: 36415; 80053; 80061; 82306; 82607; 83036; 84153; 84443; 85025; G0103

== ENCOUNTER 2024-04-02 10:39 | Outpatient (CLI) | payer BC, SELFPAY ==
[2024-04-02 12:48] LABS: Potassium 4.3 mmol/L (3.4-5.0)
[2024-04-02 12:52] LABS: Alanine Aminotransferase 20 U/L (6-50); Albumin Level 4.7 g/dL (3.5-5.1); Alkaline Phosphatase 68 U/L (38-126); Anion Gap 5 mmol/L (4-12); Aspartate Amino Transferase 40 U/L (17-59); Bilirubin,Total 0.9 mg/dL (0.2-1.3); Blood Urea Nitrogen 16 mg/dL (9-20); Calcium 9.2 mg/dL (8.4-10.2); Carbon Dioxide 31 mmol/L (22-30); Chloride 105 mmol/L (98-107); Cholesterol 220 mg/dL (0-200); Estimated Glomerular Filt Rate > 60; Glucose 101 mg/dL (65-110); HDL Direct 74 mg/dL; Sodium 141 mmol/L (137-145); Triglycerides 87 mg/dL (<150)
[2024-04-02 12:56] LABS: Basophils Absolute Auto 0.1 K/mm3 (0.0-0.1); Basophils Percent Auto 1.1 % (0.2-1.2); Eosinophils Absolute Auto 0.2 K/mm3 (0-0.3); Eosinophils Percent Auto 5.2 % (0-4.4); Hemoglobin 15.9 g/dL (14.0-18.0); Immature Granulocyte Absolute 0.02 K/mm3 (0.00-0.031); Immature Granulocyte Percent A 0.4 % (0-0.5); Lymphocytes Absolute Auto 1.05 K/mm3 (0.9-3.2); Lymphocytes Percent Auto 22.7 % (18.3-44.2); Mean Corpuscular HGB Conc 33.1 g/dl (32-36); Mean Corpuscular Hemoglobin 31.7 pg (26-34); Mean Corpuscular Volume 95.8 fl (80-100); Mean Platelet Volume 10.5 fl (7.4-10.4); Monocytes Absolute Auto 0.4 K/mm3 (0.1-0.6); Monocytes Percent Auto 8.9 % (2.6-8.5); Neutrophils Absolute Auto 2.9 K/mm3 (1.3-6.7); Neutrophils Percent Auto 61.7 % (45.5-73.1); Platelet Count Result 260 k/mm3 (150-375); Red Blood Count 5.01 M/mm3 (4.6-6.20); Red Cell Distribution Width 12.5 % (11.5-14.5); White Blood Count 4.6 K/mm3 (4.5-10.0)
[2024-04-02 13:00] LABS: LDL Cholesterol Direct 101 mg/dL
[2024-04-02 13:17] LABS: Prostate Specific Antigen 1.1 ng/mL (< OR = 4.0)
[2024-04-02 14:34] LABS: Vitamin D 25 Hydroxy 36.2 ng/mL
[2024-04-03 00:22] LABS: Hemoglobin A1C 5.6 % (<5.7)
== END 2024-04-02 10:40 | disposition home or self-care (01) ==
LOC: ANHGOSHLAB 10:40
PROVIDERS: PCP Family Medicine; Visit Provider Family Medicine
DX: Z00.00 Encounter for general adult medical examination without abnormal findings (principal); Z13.220 Encounter for screening for lipoid disorders; E53.8 Deficiency of other specified B group vitamins; Z12.5 Encounter for screening for malignant neoplasm of prostate; I10 Essential (primary) hypertension; R35.1 Nocturia; R73.03 Prediabetes; E55.9 Vitamin D deficiency, unspecified; Z13.29 Encounter for screening for other suspected endocrine disorder
CPT/HCPCS: 36415; 80053; 80061; 82306; 82607; 83036; 84153; 84443; 85025; G0103

== ENCOUNTER 2024-09-18 13:44 | Outpatient (CLI) | payer BC, SELFPAY ==
--- OUTSIDE RECORDS SUMMARY | 2024-09-18 13:50 | XMS_ITS | Continuity of Care Document ---
Author Organization [facility] Address [address] [place] [address] Phone Care Team Providers Care Development Rep Name Role Phone Connor Moreira DO Unavailable Unavailable Advance Directives Directive Yes / No Effective Date File Name No Information Encounters Encounter Description Practice Location Reason(s) For Visit Diagnoses Date Provider Providers Copied on Encounter [facility], [address], [place], [place], [id number], tel:[phone] [facility] No Information Lillie Chavez. [address] [place], [address], [place]. tel: [phone] Family History Family Member Type Diagnosis Age At Onset No Information Payers Payer name Insurance type Covered green party ID Authoriza tion(s) No Information Social History Type Description Quantity Date Captured Comments Sex Male Smoking Status No Information Chief Complaint And Reason For Visit No Information Reason For Referral Reason For Referral No Information History Of Present Illness Encounter Date Complaint History Of Prese nt Illness No Information Functional Status Date Functional Assessmen t No Information Instructions Date Instruction Additional Infor mation No Information Assessments Type Assessment Date No Information Patient Care Teams Name Effective Dates (start - stop) Status Members No Information
[2024-09-18 19:09] LABS: Erythrocyte Sedimentation Rate 5 mm/hr (0-20)
[2024-09-18 19:22] LABS: Rheumatoid Factor < 12.0 IU/ML (<12)
[2024-09-18 19:41] LABS: Alanine Aminotransferase 19 U/L (6-50); Albumin Level 4.8 g/dL (3.5-5.1); Alkaline Phosphatase 57 U/L (38-126); Anion Gap 7 mmol/L (4-12); Aspartate Amino Transferase 35 U/L (17-59); Bilirubin,Total 0.6 mg/dL (0.2-1.3); Blood Urea Nitrogen 14 mg/dL (9-20); CRP < 0.5 mg/dL (<1.0); Calcium 9.4 mg/dL (8.4-10.2); Carbon Dioxide 32 mmol/L (22-30); Chloride 103 mmol/L (98-107); Estimated Glomerular Filt Rate > 60; Glucose 66 mg/dL (65-110); Potassium 4.2 mmol/L (3.4-5.0); Sodium 142 mmol/L (137-145)
[2024-09-18 20:11] LABS: Hemoglobin A1C 5.5 % (<5.7)
[2024-09-23 12:09] LABS: Anti Cyclic Citrullinated Pept <16 UNITS
== END 2024-09-18 13:45 | disposition home or self-care (01) ==
LOC: ANHGOSHLAB 13:45
PROVIDERS: PCP Family Medicine; Visit Provider Family Medicine
DX: M25.649 Stiffness of unspecified hand, not elsewhere classified (principal); M25.50 Pain in unspecified joint; E11.9 Type 2 diabetes mellitus without complications; I10 Essential (primary) hypertension
CPT/HCPCS: 36415; 80053; 83036; 85652; 86038; 86039; 86140; 86200; 86430

== ENCOUNTER 2025-01-19 15:46 | Outpatient (CLI) | payer BC, SELFPAY ==
--- NOTE | ~2025-01-19 | XR_ITS ---
EXAMINATION: XR abdomen/kub 1V, 01/19/2025 15:55 CDT HISTORY: Diarrhea, nausea, and pressure x 2 weeks COMPARISON: No comparisons available. Technique: 3 view. Findings: Bowel gas pattern unremarkable. No obstruction. No free air. No abnormal calcifications No acute osseous abnormality. Impression: 1. No acute abnormality. Reviewed, dictated and finalized at location A. Impression: 1. No acute abnormality.
== END 2025-01-19 15:47 | disposition home or self-care (01) ==
LOC: GOSHIMG 15:46
PROVIDERS: PCP Nurse Practitioner Family; Visit Provider Nurse Practitioner Family
DX: R19.7 Diarrhea, unspecified (principal); R11.0 Nausea; Z98.890 Other specified postprocedural states; Z87.19 Personal history of other diseases of the digestive system
CPT/HCPCS: 74018